=== PATIENT | female | born 1960 | race Caucasian/White ===

== ENCOUNTER 2022-12-09 01:32 | Emergency (ER) | payer OTHER, SELFPAY ==
[2022-12-09 01:35] VITALS: BP 121/65; PULSE 76; RESP 16; TEMP 36.4; O2SAT 100
--- NOTE | 2022-12-09 03:00 | PC.NURSE ---
EDP Dr. Diaz administered medications into pt's right eye.
--- NOTE | 2022-12-09 03:00 | ED.EYEPROB ---
HPI - Eye Problem General Chief complaint: Eye Problems Stated complaint: right contact stuck in her eye Time Seen by Provider: 12/09/22 02:11 History of Present Illness HPI Narrative: Patient presents to the emergency department with her from home. She has concern for retained contact lens in her right eye. A friend who is a nurse told her that it was stuck to the front of her eye . Patient feels like it is still present. She states she has normal vision with her right eye but blurry with her left so she believes the lens is still present. Patient's eye is irritated and injected. She has only been wearing the contacts for the past few weeks. And states the right when always gives her trouble. Says that she cannot see it when it is in her eye to remove it but removes it blindly Related Data Allergies Allergy/AdvReac Type Severity Reaction Status Date / Time No Known Allergies Allergy Verified 12/09/22 01:32 Exam Narrative: GENERAL: Well-appearing, well-nourished, and in no acute distress. HEAD: Normocephalic, atraumatic. ENT: Nares clear, no rhinorrhea or epistaxis. Mucous membranes moist. Right conjunctival injection Fluorescein exam yields corneal abrasion anterior right iris. NECK: Normal ROM CHEST: No respiratory distress. EXTREMITIES: Normal range of motion. SKIN: Warm, dry, no rash. NEURO: No focal deficits. Alert and oriented x3. PSYCH: Normal mood and affect. Course Course Emergency Course: After tetracaine and fluorescein, I examined the entire right eye with magnifying lens. No contact lens found and. Patient seems hesitant to believe this because her nurse friend told her she could see it stuck to her eye. Attempted to reassure patient and flushed it out 1 more time prior to discharge. Corneal abrasion likely causing her symptoms. Will start on antibiotic drops and given ophthalmology referral if needed. Shared decision making with patient regarding plan for outpatient follow-up and medication use not possible to do so stated this is a very awkward so Vital Signs Vital signs: Vital Signs Temperature 36.4 C L 12/09/22 01:35 Pulse Rate 76 12/09/22 01:35 Respiratory Rate 16 12/09/22 01:35 Blood Pressure 121/65 12/09/22 01:35 Pulse Oximetry 100 12/09/22 01:35 Oxygen Delivery Room Air 12/09/22 01:35 Temperature 36.4 C L 12/09/22 01:35 Pulse Rate 76 12/09/22 01:35 Respiratory Rate 16 12/09/22 01:35 Blood Pressure 121/65 12/09/22 01:35 Pulse Oximetry 100 12/09/22 01:35 Oxygen Delivery Room Air 12/09/22 01:35 Discharge Plan Discharge Clinical Impression: Corneal abrasion Patient Disposition: Home, Self-Care Condition: Stable Instructions: Corneal Abrasion (DC) Additional Instructions: Antibiotic drops 4 times a day ibuprofen every 6-8 hours for discomfort Follow-up with ophthalmology to ensure corneal abrasion has resolved Follow up with ophthalmology [phone] [facility] Prescriptions: New gentamicin 0.3 % drops 2 drp RIGHT EYE Q4H Qty: 5 0RF Follow-up/Referrals: PHYSICIAN NOT ON STAFF,NONSTAFF [Primary Care Provider] - Time of Disposition: 03:11
== END 2022-12-09 03:29 | disposition home or self-care (01) ==
PROVIDERS: Emergency Provider Emergency Medicine
DX: S05.01XA Injury of conjunctiva and corneal abrasion without foreign body, right eye, initial encounter (principal); X58.XXXA Exposure to other specified factors, initial encounter
CPT/HCPCS: 99283